=== PATIENT | female | born 1990 | race Caucasian/White ===

== ENCOUNTER 2018-07-14 14:36 | Inpatient (IN) | payer OTHER ==
[~2018-07-14] VITALS: Ht 165.1 cm; Wt 73.9 kg
[2018-07-14 14:41] VITALS: BP 124/74
[2018-07-14 15:04] LABS: BASOPHILS % (AUTO) 0.2 % (0.0-2.0); EOSINOPHILS # (AUTO) 0.1 K/uL (0-0.4); EOSINOPHILS % (AUTO) 0.8 % (0.0-4.0); HEMATOCRIT 39.7 % (36-48); HEMOGLOBIN 13.2 g/dL (12.0-16.0); LYMPHOCYTES # (AUTO) 2.9 K/uL (2.5-16.5); LYMPHOCYTES % (AUTO) 29.7 % (20.5-51.1); MEAN CORPUSCULAR HEMOGLOBIN 31 pg (27-31); MEAN CORPUSCULAR HGB CONC 33 g/dL (33-37); MEAN CORPUSCULAR VOLUME 92.4 fL (80-94); MONOCYTES # (AUTO) 0.6 K/uL (0.8-1.0); MONOCYTES % (AUTO) 5.7 % (1.7-9.3); NEUTROPHILS # (AUTO) 6.1 K/uL (1.8-7.7); NEUTROPHILS % (AUTO) 63.6 % (42.2-75.2); PLATELET COUNT (AUTO) 166 K/uL (140-450); RED BLOOD CELL COUNT(AUTO) 4.29 MIL/uL (4.20-5.40); RED CELL DISTRIBUTION WIDTH 13.2 % (11.6-13.7); WHITE BLOOD COUNT (AUTO) 9.6 K/uL (4.8-10.8)
[2018-07-14 15:05] LABS: APPEARANCE,URINE CLEAR (CLEAR); BILIRUBIN,URINE NEGATIVE (NEGATIVE); BLOOD, URINE TRACE-L (NEGATIVE); COLOR,URINE YELLOW (YELLOW); LEUKOCYTE ESTERASE ,URINE NEGATIVE (NEGATIVE); NITRITE, URINE NEGATIVE (NEGATIVE); UGLUCOSE NEGATIVE (NEGATIVE)
[2018-07-14] MEDS ORDERED: BUPR200T1 PO (15:10)
[2018-07-14] MEDS ORDERED: MELA5TAB5 PO (15:10)
[2018-07-14] MEDS ORDERED: HYDR-1096 PO (15:10)
[2018-07-14] MEDS ORDERED: ERGO2000 PO (15:10)
[2018-07-14] MEDS ORDERED: TRAZ-343 PO (15:10)
[2018-07-14] MEDS ORDERED: IBUP-2213 PO (15:10)
[2018-07-14] MEDS ORDERED: ALBU0.0912 IH (15:10)
[2018-07-14 15:11] LABS: BARBITURATE, URINE NEG. ng/ml (NEG <=200); BENZODIAZEPINE, URINE NEG. ng/mL (NEG <=200); CANNABINOID, URINE NEG. ng/mL (NEG <=50); COCAINE, URINE NEG. ng/mL (NEG <=300); OPIATE, URINE NEG. ng/mL (NEG <=2000); PHENCYCLIDINE SCREEN,URINE NEG. ng/mL (NEG <=25)
[2018-07-14 15:26] LABS: ALBUMIN 3.8 g/dL (3.4-5.0); ANION GAP 11.5 (8-16); ASPARTATE AMINOTRANSFERASE 14 U/L (15-37); CHLORIDE 106 mmol/L (98-107); CREATININE 0.8 mg/dL (0.6-1.3); GFR ARICAN-AMERICAN 109 mL/min (>90); GLUCOSE 96 mg/dL (74-106); POTASSIUM 4.5 mmol/L (3.5-5.1); SODIUM SERUM 138 mmol/L (136-145); TOTAL BILIRUBIN 0.3 mg/dL (0.0-1.0); UREA NITROGEN, BLOOD 8 mg/dL (7-18)
[2018-07-14 15:28] LABS: SALICYLATE < 2.8 mg/dL (2.8-20.0)
[2018-07-14 15:29] LABS: ACETAMINOPHEN < 0.5 ug/ml (10-30)
[2018-07-14 16:10] LABS: RBC,URINE 3-10 (FEW) /HPF (0-5)
[2018-07-14 16:11] LABS: WBC,URINE 0-5 (RARE) /HPF (0-5)
[2018-07-14 21:00] VITALS: BP 109/73
[2018-07-14] MEDS ORDERED: TEMAZEPAM 15 MG CAP PO PRN (22:10)
[2018-07-14] MEDS ORDERED: ACETAMINOPHEN 325 MG TAB PO PRN (22:10)
[2018-07-15] VITALS: BP 114/72
[2018-07-15] MEDS ORDERED: PNEUMOCOCCAL VACCINE 23 MCG/0.5 ML VIAL IMVAC SCH (00:25)
[2018-07-15 08:00] VITALS: BP 116/66
[2018-07-15 16:00] VITALS: BP 120/69
[2018-07-15] MEDS: ONDANSETRON 4 MG/2 ML VIAL IVP PRN (16:48)
[2018-07-15] MEDS ORDERED: HYDROXYZINE HCL 50 MG PO SCH (21:00)
[2018-07-15] MEDS ORDERED: NON-FORMULARY ITEM (Melatonin (Melatonin) 5 MG) PO SCH (21:00)
[2018-07-15] MEDS: hydrOXYzine HCL 25 MG TAB PO SCH (22:16)
[2018-07-15] MEDS: traZODone 50 MG TAB PO SCH (22:17)
[2018-07-16] VITALS: BP 109/60
[2018-07-16 08:00] VITALS: BP 91/53
[2018-07-16] MEDS ORDERED: BUPROPION HCL 300 MG PO SCH (09:00)
[2018-07-16] MEDS ORDERED: buPROPion 150 MG TABER PO SCH (09:00)
[2018-07-16] MEDS ORDERED: ENOXAPARIN 40 MG/0.4 ML SYR SUBQ SCH (09:00)
[2018-07-16] MEDS: hydrOXYzine HCL 25 MG TAB PO SCH ×2 (09:11→20:35)
[2018-07-16 16:00] VITALS: BP 105/64
[2018-07-16] MEDS: ONDANSETRON 4 MG/2 ML VIAL IVP PRN (17:23)
[2018-07-16] MEDS: traZODone 50 MG TAB PO SCH (20:35)
[2018-07-16 23:13] VITALS: BP 102/53
[2018-07-17] VITALS: BP 102/53
== END 2018-07-17 00:50 | disposition designated cancer center or children's hospital (05) | DRG 753 ==
LOC: MED 14:36 → MIC 19:23 → MTU 07-15 07:05
PROVIDERS: ADMIT Hospitalist; ATTEND Hospitalist
DX: F31.5 Bipolar disorder, current episode depressed, severe, with psychotic features (principal); E55.9 Vitamin D deficiency, unspecified; G47.00 Insomnia, unspecified; F17.210 Nicotine dependence, cigarettes, uncomplicated; F43.10 Post-traumatic stress disorder, unspecified; F12.90 Cannabis use, unspecified, uncomplicated; Z59.0 Homelessness
CPT/HCPCS: 36415; 80053; 80305; 81001; 85025; 87081; 99285; G0480; G0482; J1650; J2405